=== PATIENT | female | born 1990 | race African-American/Black ===

== ENCOUNTER 2017-04-30 13:54 | Emergency (ER) | payer MEDICAID ==
[~2017-04-30] VITALS: Ht 149.9 cm; Wt 78.5 kg
[2017-04-30 15:11] LABS: Urine Bacteria NONE SEEN /hpf (None Seen); Urine Blood Negative /uL (Negative); Urine Mucus FEW (None Seen); Urine Specific Gravity 1.012 (1.001-1.035); Urine WBC <1 /hpf (0 - 5)
[2017-04-30 15:36] VITALS: BP 115/69
== END 2017-04-30 17:48 | disposition home or self-care (01) ==
LOC: ER 13:54
DX: K57.30 Diverticulosis of large intestine without perforation or abscess without bleeding (principal); J45.909 Unspecified asthma, uncomplicated; E78.5 Hyperlipidemia, unspecified; F17.210 Nicotine dependence, cigarettes, uncomplicated
CPT/HCPCS: 74176; 81001; 81025

== ENCOUNTER 2017-05-23 12:10 | Emergency (ER) | payer MEDICAID ==
[~2017-05-23] VITALS: Ht 177.8 cm; Wt 56.7 kg
[2017-05-23 12:39] VITALS: BP 146/72
[2017-05-23 13:49] LABS: Urine Bacteria NONE SEEN /hpf (None Seen); Urine Blood Negative /uL (Negative); Urine Mucus FEW (None Seen); Urine Specific Gravity 1.024 (1.001-1.035); Urine WBC 3 /hpf (0 - 5)
[2017-05-23] MEDS ORDERED: ACETAMINOPHEN 500 MG TAB PO ONE ×2 (14:04→14:15)
== END 2017-05-23 14:09 | disposition home or self-care (01) ==
LOC: ER 12:10 → EDUNIT# 12:10 → EDBD 12:10 → ER 14:09
DX: F41.9 Anxiety disorder, unspecified (principal); N39.0 Urinary tract infection, site not specified; E78.5 Hyperlipidemia, unspecified; E07.9 Disorder of thyroid, unspecified; F17.210 Nicotine dependence, cigarettes, uncomplicated; J45.909 Unspecified asthma, uncomplicated; R45.851 Suicidal ideations
CPT/HCPCS: 81001; 93005

== ENCOUNTER 2017-05-30 10:37 | Emergency (ER) | payer MEDICAID ==
[~2017-05-30] VITALS: Ht 149.9 cm; Wt 78.0 kg
[2017-05-30 11:17] VITALS: BP 116/72
[2017-05-30 11:29] LABS: Urine Bacteria NONE SEEN /hpf (None Seen); Urine Blood Negative /uL (Negative); Urine Specific Gravity 1.018 (1.001-1.035); Urine WBC None Seen /hpf (0 - 5)
[2017-05-30 16:07] LABS: Alcohol, Urine < 3.0 mg/dL (0-5); Amphetamine Screen, Urine NEGATIVE (NEGATIVE); Barbiturate Scree,Urine NEGATIVE (NEGATIVE); Benzodiazephine Screen, Urine POSITIVE (NEGATIVE); Cannabinoid Screen, Urine POSITIVE (NEGATIVE); Cocaine Screen, Urine NEGATIVE (NEGATIVE); Opiate Scree,Urine NEGATIVE (NEGATIVE); Phencyclidine Screen, Urine NEGATIVE (NEGATIVE)
== END 2017-05-30 12:13 | disposition home or self-care (01) ==
LOC: ER 10:37
DX: J45.909 Unspecified asthma, uncomplicated (principal); E78.5 Hyperlipidemia, unspecified; E07.89 Other specified disorders of thyroid; F17.210 Nicotine dependence, cigarettes, uncomplicated; F12.10 Cannabis abuse, uncomplicated; Z76.0 Encounter for issue of repeat prescription
CPT/HCPCS: 80307; 81001